=== PATIENT | female | born 1980 | race American Indian/Alaskan Native ===

== ENCOUNTER 2017-10-31 11:00 | Outpatient (CLI) | payer OTHER | END 2017-10-31 11:56 | disposition home or self-care (01) | LOC: RAD 501 11:00 | DX: M77.31 Calcaneal spur, right foot (principal); M77.32 Calcaneal spur, left foot ==

== ENCOUNTER 2018-08-04 13:20 | Outpatient (CLI) | payer OTHER | END 2018-08-04 13:35 | disposition home or self-care (01) | LOC: RAD 13:20 | DX: M41.20 Other idiopathic scoliosis, site unspecified (principal); J01.80 Other acute sinusitis ==

== ENCOUNTER 2018-11-03 11:12 | Outpatient (CLI) | payer OTHER | END 2018-11-03 12:18 | disposition home or self-care (01) | LOC: RAD 11:12 | DX: M25.551 Pain in right hip (principal); M24.152 Other articular cartilage disorders, left hip; M25.452 Effusion, left hip; M25.552 Pain in left hip ==

== ENCOUNTER 2019-05-25 12:04 | Outpatient (CLI) | payer OTHER | END 2019-05-25 12:20 | disposition home or self-care (01) | LOC: MAMO-SONO 12:04 | DX: Z12.31 Encounter for screening mammogram for malignant neoplasm of breast (principal); N60.11 Diffuse cystic mastopathy of right breast ==

== ENCOUNTER 2020-08-06 10:50 | Outpatient (CLI) | payer OTHER | END 2020-08-06 11:03 | disposition home or self-care (01) | LOC: MAMO-SONO 10:50 | PROVIDERS: ATTEND Family Medicine | DX: N64.4 Mastodynia (principal) ==

== ENCOUNTER 2021-06-29 12:42 | Outpatient (CLI) | payer OTHER | END 2021-06-29 12:50 | disposition home or self-care (01) | LOC: RAD 12:42 | PROVIDERS: ATTEND Orthopaedic Surgery Orthopaedic Surgery of the Spine | DX: M41.125 Adolescent idiopathic scoliosis, thoracolumbar region (principal) ==

== ENCOUNTER 2021-11-18 10:25 | Outpatient (CLI) | payer OTHER | END 2021-11-18 10:36 | disposition home or self-care (01) | LOC: MAMO-SONO 10:25 | PROVIDERS: ATTEND Obstetrics & Gynecology | DX: Z12.31 Encounter for screening mammogram for malignant neoplasm of breast (principal); N60.11 Diffuse cystic mastopathy of right breast ==

== ENCOUNTER 2022-08-02 10:43 | Outpatient (CLI) | payer OTHER | END 2022-08-02 10:53 | disposition home or self-care (01) | LOC: SONOGRAMA 10:43 | PROVIDERS: ATTEND Internal Medicine Gastroenterology | DX: E04.9 Nontoxic goiter, unspecified (principal); R16.1 Splenomegaly, not elsewhere classified ==

== ENCOUNTER 2022-11-03 15:17 | Outpatient (CLI) | payer OTHER | END 2022-11-03 15:26 | disposition home or self-care (01) | LOC: RAD 15:17 | PROVIDERS: ATTEND Orthopaedic Surgery Orthopaedic Surgery of the Spine | DX: Q65.89 Other specified congenital deformities of hip (principal); M25.851 Other specified joint disorders, right hip; M25.852 Other specified joint disorders, left hip; M41.125 Adolescent idiopathic scoliosis, thoracolumbar region ==

== ENCOUNTER 2024-04-19 10:07 | Outpatient (CLI) | payer OTHER ==
[2024-04-19 11:27] LABS: PH,URINE 6.5 (5.0-8.0); URINE APPEARANCE Clear; URINE BILIRRUBIN Negative (NEGATIVE); URINE BLOOD Negative; URINE COLOR Yellow; URINE GLUCOSE Negative (NEGATIVE); URINE KETONE Trace (NEGATIVE); URINE LEUKOCYTE Trace; URINE NITRATE Negative; URINE PROTEIN Negative (NEGATIVE); URINE UROBILINOGEN 0.2 E.U./dl
[2024-04-19 11:28] LABS: HEMATOCRIT 39.2 % (36.0-45.00); HEMOGLOBIN 13.4 g/dL (12.0-15.00); MEAN CELL VOLUME 92.8 fL (80.00-100.00); MEAN CORPUSCULAR HEMOGLOBIN 31.7 pg (27.00-32.0); MEAN CORPUSCULAR HGB CONC 34.2 g/dl (32.0-36.0); PLATELET COUNT 253 K/uL (150-450); RED BLOOD COUNT 4.22 M/uL (4.00-6.00); RED CELL DISTRIBUTION WIDTH 13.7 % (11.5-14.5)
[2024-04-19 11:32] LABS: URINE BACTERIA 594.7 uL (0.0-1933); URINE EPITHELIAL CELLS 7.7 uL (0.0-38.8); URINE RBC 4.5 uL (0.0-20.8); URINE WBC 5.8 uL (0.0-23.2)
[2024-04-19 11:38] LABS: URINE CAST 0.14 uL (0.0-1.40)
[2024-04-19 12:10] LABS: ALBUMIN 3.4 gm/dL (3.4-5.0); BILIRUBIN TOTAL 0.56 mg/dL (0.3-1.2); CREATININE SERUM 0.87 mg/dL (0.55-1.02); GFR 70.73; GLOBULINA 3.3 G/DL (2.4-3.5); POTASSIUM 3.72 mEq/L (3.5-5.1); T4 FREE 1.16 NG/ML (0.76-1.46); TOTAL PROTEIN 6.7 gm/dL (6.4-8.2); TSH 0.829 uIU/mL (0.358-3.74)
[2024-04-21 06:04] LABS: hav igm Negative (Negative); hcv Non Reactive (Non Reactive); hep b c Negative (Negative); hep b s ag Negative (Negative)
== END 2024-04-19 10:08 | disposition home or self-care (01) ==
LOC: LAB 10:07
PROVIDERS: ATTEND Obstetrics & Gynecology
DX: N91.1 Secondary amenorrhea (principal)

== ENCOUNTER 2024-06-21 08:39 | Outpatient (CLI) | payer OTHER | END 2024-06-21 08:49 | disposition home or self-care (01) | LOC: MAMO-SONO 08:39 | PROVIDERS: ATTEND Obstetrics & Gynecology | DX: N60.11 Diffuse cystic mastopathy of right breast (principal) ==